=== PATIENT | female | born 1990 | race Caucasian/White ===

== ENCOUNTER 2020-11-10 09:09 | Emergency (ER) | payer BC ==
[2020-11-10] MEDS ORDERED: Ondansetron 4 MG/2 ML SDV IVPUSH ONE (09:15)
[2020-11-10] MEDS ORDERED: Sodium Chloride 0.9% 1,000 ML IV ONE (09:15)
[2020-11-10] MEDS ORDERED: Sodium Chloride 0.9% 10 ML Syringe FLUSH PRN (09:15)
--- NOTE | 2020-11-10 09:16 | EDM.PDOC ---
ED HPI GENERAL MEDICAL PROBLEM - General Chief Complaint: General Stated Complaint: NAUSEA,VOMITING,DEHYDRATED Time Seen by Provider: 11/10/20 09:15 Source of Information: Reports: Patient History Limitations: Reports: No Limitations - History of Present Illness INITIAL COMMENTS - FREE TEXT/NARRATIVE: 30 YO WF PRESENTS TO ER COMPLAINING OF NAUSEA/VOMITING AND FEELING SHAKY WHICH BEGAN THIS AM AFTER WAKING UP. PT REPORTS HISTORY OF ANXIETY/DEPRESSION. PT TAKES ABILIFY/LAMICTAL FOR HER ANXIETY. PT REPORTS INCONSISTENT COMPLIANCE WITH HER HOME MEDICATIONS BUT DENIES STOPPING THEM COMPLETELY. PT REPORTS SIGNIFICANT ALCOHOL CONSUMPTION- 6-8 DRINKS PER DAY WITH LAST DRINK AT 8PM LAST NIGHT. PT DENIES ANY RECENT ILLNESSES- NO COUGH/CONGESTION, NO FEVER/CHILLS, NO CHEST PAIN/SHORTNESS OF BREATH. PT REPORTS TAKING ZOFRAN 4MG ODT THIS AM. PT DENIES CONSTIPATION/DIARRHEA, NO ABDOMINAL PAIN NOTED. PT IS ALERT AND ORIENTED X 4, AND IN NAD. Onset: Today Duration: Day(s): (1) Severity: Mild Improves with: Reports: None Worsens with: Reports: None Associated Symptoms: Reports: Loss of Appetite, Nausea/Vomiting. Denies: Confusion, Chest Pain, Cough, Diaphoresis, Fever/Chills, Headaches, Malaise, Rash, Shortness of Breath, Weakness Left Upper Abdomen Pain Score (Numeric/FACES): 4 - Related Data Allergies Allergy/AdvReac Type Severity Reaction Status Date / Time No Known Allergies Allergy Verified 11/10/20 09:15 Home Meds: Home Meds ARIPiprazole [Abilify] 5 mg PO DAILY 01/01/20 [History] Calcium Carb, Citrate/Vit D3 [Citracal + D ER] 1 each PO BID 01/01/20 [History] Multivit-Min/Iron/Folic Acid/K [Bariatric Mv-Iron 45 mg Cap] 2 tab PO DAILY 01/01/20 [History] hydrOXYzine pamoate [Vistaril] 50 mg PO BID PRN 01/01/20 [History] lamoTRIgine [LaMICtal] 300 mg PO DAILY 01/01/20 [History] Minocycline [Minocin] 100 mg PO BID 11/10/20 [History] Ondansetron [Zofran ODT] 4 mg PO Q6H PRN #10 tab.dis 11/10/20 [Rx] Past Medical History Psychiatric History: Reports: Bipolar Endocrine/Metabolic History: Reports: Obesity/BMI 30+ - Past Surgical History HEENT Surgical History: Reports: Tonsillectomy GI Surgical History: Reports: Bariatric Procedure Social & Family History - Caffeine Use Caffeine Use: Reports: None ED ROS GENERAL - Review of Systems Review Of Systems: See Below Constitutional: Reports: No Symptoms HEENT: Reports: No Symptoms Respiratory: Reports: No Symptoms Cardiovascular: Reports: No Symptoms Endocrine: Reports: No Symptoms GI/Abdominal: Reports: Nausea, Vomiting : Reports: No Symptoms Musculoskeletal: Reports: No Symptoms Skin: Reports: No Symptoms Neurological: Reports: No Symptoms Psychiatric: Reports: No Symptoms Hematologic/Lymphatic: Reports: No Symptoms Immunologic: Reports: No Symptoms ED EXAM, GENERAL - Physical Exam Exam: See Below Exam Limited By: No Limitations General Appearance: Alert, WD/WN, No Apparent Distress, Anxious Eye Exam: Bilateral Eye: EOMI, PERRL Head: Atraumatic, Normocephalic Neck: Normal Inspection, Supple, Non-Tender, Full Range of Motion Respiratory/Chest: No Respiratory Distress, Lungs Clear, Normal Breath Sounds, No Accessory Muscle Use, Chest Non-Tender Cardiovascular: Normal Peripheral Pulses, Regular Rate, Rhythm, No Edema, No Gallop, No JVD, No Murmur, No Rub GI/Abdominal: Normal Bowel Sounds, Soft, Non-Tender, No Organomegaly, No Distention, No Abnormal Bruit, No Mass Back Exam: Normal Inspection, Full Range of Motion, NT Extremities: Normal Inspection, Normal Range of Motion, Non-Tender, Normal Capillary Refill, No Pedal Edema Neurological: Alert, Oriented, CN II-XII Intact, Normal Cognition, Normal Gait, Normal Reflexes, No Motor/Sensory Deficits Psychiatric: Normal Affect, Normal Mood Course - Vital Signs Last Recorded V/S: Last Vital Signs Temp 96.9 F 11/10/20 09:10 Pulse 104 H 11/10/20 09:10 Resp 22 H 11/10/20 09:10 BP 178/117 H 11/10/20 09:10 Pulse Ox 97 11/10/20 09:10 - Orders/Labs/Meds Orders: Active Orders 24 hr Category Date Time Status Peripheral IV Care [RC] . DIRECTED Care 11/10/20 09:15 Active UA W/MICROSCOPIC [URIN] Stat Lab 11/10/20 10:35 Results Sodium Chloride 0.9% [Saline Flush] Med 11/10/20 09:15 Active 10 ml FLUSH Q8HR PRN Peripheral IV Insertion Adult [OM.PC] Routine Oth 11/10/20 09:15 Ordered Medication Orders Sodium Chloride (Sodium Chloride 0.9% 10 Ml Syringe) 10 ml FLUSH Q8HR PRN PRN Reason: keep vein open Labs: Laboratory Tests 11/10/20 11/10/20 11/10/20 Range/Units 09:27 09:27 10:35 WBC 9.25 (5.00-10.00) 10^3/uL RBC 4.67 (3.80-5.50) 10^6/uL Hgb 14.0 (12.0-16.0) g/dL Hct 43.5 (37.0-47.0) % MCV 93.1 H (82.0-92.0) fL MCH 30.0 (27.0-31.0) pg MCHC 32.2 (32.0-36.0) g/dL RDW 14.5 (11.5-14.5) % Plt Count 337 (150-400) 10^3/uL MPV 9.6 (7.4-10.4) fL Immature Gran % (Auto) 0.5 (0.0-5.0) % Neut % (Auto) 71.6 H (50.0-70.0) % Lymph % (Auto) 17.2 L (20.0-40.0) % [place] % (Auto) 8.9 H (2.0-8.0) % Eos % (Auto) 0.5 L (1.0-3.0) % Baso % (Auto) 1.3 H (0.0-1.0) % Neut # (Auto) 6.62 (2.50-7.00) 10^3/uL Lymph # (Auto) 1.59 (1.00-4.00) 10^3/uL [place] # (Auto) 0.82 H (0.10-0.80) 10^3/uL Eos # (Auto) 0.05 L (0.10-0.30) 10^3/uL Baso # (Auto) 0.12 H (0.00-0.10) 10^3/uL Immature Gran # (Auto) 0.05 (0.00-0.50) 10^3/uL Sodium 141 (136-145) mmol/L Potassium 3.8 (3.5-5.1) mmol/L Chloride 103 (98-107) mmol/L Carbon Dioxide 26.5 (21.0-32.0) mmol/L Anion Gap 15.3 H (5-15) mmol/L BUN 5 L (7-18) mg/dL Creatinine 0.73 (0.51-1.17) mg/dL Est Cr Clr Drug Dosing 115.62 mL/min Estimated GFR (MDRD) > 60 mL/min Glucose 97 (70-140) mg/dL Calcium 8.9 (8.7-10.3) mg/dL Total Bilirubin 0.5 (0.2-1.0) mg/dL AST 143 H (15-37) U/L ALT 156 H (14-63) U/L Alkaline Phosphatase 134 H (46-116) U/L Total Protein 7.4 (6.4-8.2) g/dL Albumin 3.87 (3.40-5.00) g/dL Lipase 213 (73-393) U/L HCG, Qual Negative (NEGATIVE) Urine Color Yellow (YELLOW) Urine Appearance Slightly cloudy H (CLEAR) Urine pH 6.0 (5.0-9.0) Ur Specific [place] >= 1.030 (1.005-1.030) Urine Protein 30 H (NEGATIVE) mg/dL Urine Glucose (UA) Negative (NEGATIVE) mg/dL Urine Ketones 15 H (NEGATIVE) mg/dL Urine Occult Blood Negative (NEGATIVE) Urine Nitrite Negative (NEGATIVE) Urine Bilirubin Small H (NEGATIVE) Urine Urobilinogen 0.2 (0.2-1.0) E.U./dL Ur Leukocyte Esterase Trace H (NEGATIVE) Meds: Medications Generic Name Dose Route Start Last Admin Trade Name Freq PRN Reason Stop Dose Admin Sodium Chloride 10 ml 11/10/20 09:15 Sodium Chloride 0.9% 10 Ml Syringe FLUSH Q8HR PRN keep vein open Discontinued Medications Generic Name Dose Route Start Last Admin Trade Name Freq PRN Reason Stop Dose Admin Sodium Chloride 1,000 mls @ 999 mls/hr 11/10/20 09:15 11/10/20 09:42 Normal Saline IV 11/10/20 10:15 999 mls/hr .BOLUS ONE Administration Lorazepam 1 mg 11/10/20 09:31 11/10/20 09:50 Lorazepam 2 Mg/Ml Sdv IVPUSH 11/10/20 09:32 1 mg ONETIME ONE Administration Ondansetron HCl 4 mg 11/10/20 09:15 11/10/20 09:45 Ondansetron 4 Mg/2 Ml Sdv IVPUSH 11/10/20 09:16 4 mg ONETIME ONE Administration - Radiology Interpretation Free Text/Narrative:: PT REPORTS FEELING MUCH BETTER AFTER ZOFRAN/FLUIDS/ATIVAN. PT TOLERATING PO FLUIDS WELL. PT ALERT AND ORIENTED X 4. PT WOULD LIKE TO BE DISCHARGED HOME AT THIS TIME. Departure - Departure Time of Disposition: 10:51 Disposition: Home, Self-Care 01 Condition: Good Clinical Impression: Alcohol abuse, Elevated LFTs Vomiting Qualifiers: Vomiting type: unspecified Vomiting Intractability: unspecified Nausea presence: with nausea Qualified Code(s): R11.2 - Nausea with vomiting, unspecified - Discharge Information Prescriptions: Ondansetron [Zofran ODT] 4 mg PO Q6H PRN #10 tab.dis PRN Reason: Vomiting Instructions: Alcohol Use Disorder, Nausea and Vomiting, Adult, [id number] Referrals: Luz Recinos PICK UP AND DELIVERY DRIVER [Primary Care Provider] - Forms: ED Department Discharge Additional Instructions: 1. DISCHARGE HOME 2. ZOFRAN 4MG ODT #10 1 EVERY 8 HOURS NEEDED 3. PUSH FLUIDS 4. FOLLOW UP IN CLINIC FOR FURTHER EVALUATION OF ELEVATED LIVER ENZYMES 5. RETURN TO ER FOR WORSENING SYMPTOMS 6. STOP ALCOHOL CONSUMPTION WITH THE [facility]ISTANCE OF [facility]ATION [facility] Sepsis Event Note (ED) - Evaluation Sepsis Screening Result: No Definite Risk - Focused Exam Vital Signs: Vital Signs Temp Pulse Resp BP Pulse Ox 11/10/20 09:10 96.9 F 104 H 22 H 178/117 H 97 - My Orders Last 24 Hours: My Active Orders 11/10/20 09:15 Peripheral IV Care [RC] . DIRECTED Sodium Chloride 0.9% [Saline Flush] 10 ml FLUSH Q8HR PRN Peripheral IV Insertion Adult [OM.PC] Routine 11/10/20 10:35 UA W/MICROSCOPIC [URIN] Stat - Assessment/Plan Last 24 Hours: My Active Orders 11/10/20 09:15 Peripheral IV Care [RC] . DIRECTED Sodium Chloride 0.9% [Saline Flush] 10 ml FLUSH Q8HR PRN Peripheral IV Insertion Adult [OM.PC] Routine 11/10/20 10:35 UA W/MICROSCOPIC [URIN] Stat Assessment:: 1. NAUSEA/VOMITING 2. ALCOHOL USE/ABUSE 3. ELEVATED LFT'S Plan: 1. DISCHARGE HOME 2. ZOFRAN 4MG ODT #10 1 EVERY 8 HOURS NEEDED 3. PUSH FLUIDS 4. FOLLOW UP IN CLINIC FOR FURTHER EVALUATION OF ELEVATED LIVER ENZYMES 5. RETURN TO ER FOR WORSENING SYMPTOMS 6. STOP ALCOHOL CONSUMPTION WITH THE [facility]ISTANCE OF [facility]
[2020-11-10] MEDS ORDERED: LORazepam 2 MG/ML SDV IVPUSH ONE (09:31)
[2020-11-10 09:54] LABS: ANION GAP 15.3 mmol/L (5-15); CHLORIDE,CL 103 mmol/L (98-107); SODIUM,NA 141 mmol/L (136-145)
== END 2020-11-10 11:00 | disposition home or self-care (01) ==
LOC: KA.ED 09:09
DX: R11.2 Nausea with vomiting, unspecified (principal); F10.10 Alcohol abuse, uncomplicated; E66.9 Obesity, unspecified; Z68.30 Body mass index [BMI] 30.0-30.9, adult; R79.89 Other specified abnormal findings of blood chemistry
CPT/HCPCS: 80053; 81001; 83690; 84703; 85025; 96374; 96375; 99284; J2060; J2405; J7030